=== PATIENT | female | born 1990 | race Hispanic/Latino ===

== ENCOUNTER 2018-04-24 13:00 | Inpatient (IN) | payer BC, OTHER ==
[~2018-04-24] VITALS: Ht 157.5 cm; Wt 89.7 kg
[2018-04-24 14:01] VITALS: BP 114/74
[2018-04-24 14:13] LABS: BASOPHILS % (AUTO) 0.5 % (0.0-5.0); EOSINOPHILS % (AUTO) 2.4 % (0.0-8.0); HEMATOCRIT 39.5 % (36-48); LYMPHOCYTES % (AUTO) 17.2 % (21.0-51.0); MEAN CORPUSCULAR HEMOGLOBIN 26.6 pg (27.0-33.0); MEAN CORPUSCULAR HGB CONC 32.4 g/dL (32.0-36.0); MONOCYTES % (AUTO) 5.8 % (3.0-13.0); NEUTROPHILS % (AUTO) 74.1 % (40.0-77.0); PLATELET COUNT (AUTO) 290 K/uL (130-400); RED BLOOD CELL COUNT(AUTO) 4.82 MIL/uL (4.00-5.50); RED CELL DISTRIBUTION WIDTH 13.5 % (11.0-15.5); WHITE BLOOD COUNT (AUTO) 10.3 K/uL (4.8-10.8)
[2018-04-25] MEDS: CEFAZOLIN SODIUM 1 GM VIAL IVP SCH (11:30)
[2018-04-26] VITALS (28 sets, daily range): BP systolic 92–125; BP diastolic 51–72
[2018-04-26] MEDS ORDERED: LACTATED RINGERS 1000ML 1,000 ML IV ONE (07:27)
[2018-04-26] MEDS ORDERED: CEFAZOLIN SODIUM 1 GM VIAL ONE (07:30)
[2018-04-26] MEDS: CEFAZOLIN SODIUM 1 GM VIAL IVP SCH (08:52)
[2018-04-26] MEDS ORDERED: MEPERIDINE-PF 25 MG/ML SYG ONE ×2 (10:27→10:40)
[2018-04-26] MEDS ORDERED: PROMETHAZINE HCL 25 MG/ML 1ML AMPULE IM PRN (10:45)
[2018-04-26] MEDS ORDERED: MEPERIDINE 10MG/ML 50ML PCA 50 ML IV PRN (10:45)
[2018-04-26] MEDS ORDERED: DIPHENHYDRAMINE HCL 25 MG CAPSULE PO PRN (10:45)
[2018-04-26] MEDS ORDERED: BISACODYL 10 MG SUPP.RECT RC PRN (10:45)
[2018-04-26] MEDS ORDERED: ONDANSETRON HCL 4 MG/2 ML VIAL IVP PRN (10:45)
[2018-04-26] MEDS ORDERED: CEFAZOLIN 3GM /D5W 100ML 100 ML IV SCH (10:45)
[2018-04-26] MEDS ORDERED: NALOXONE HCL 0.4 MG/1 ML ML IVP PRN (10:45)
[2018-04-26] MEDS ORDERED: FENTANYL CITRATE PF 50 MCG/1 ML 2ML VIAL ONE (10:51)
[2018-04-26] MEDS: CALDOLOR 800MG+NS 250ML 250 ML IVPB SCH ×2 (11:21→19:12)
[2018-04-26] MEDS: DEXTROSE 5 %-0.45 % NACL 1,000 ML IV PRN (19:13)
[2018-04-26] MEDS: CEFAZOLIN 3GM /D5W 100ML 100 ML IV SCH (19:45)
[2018-04-27] VITALS (7 sets, daily range): BP systolic 95–112; BP diastolic 51–68
[2018-04-27] MEDS: CALDOLOR 800MG+NS 250ML 250 ML IVPB SCH (02:28)
[2018-04-27] MEDS: CEFAZOLIN 3GM /D5W 100ML 100 ML IV SCH (03:32)
[2018-04-27 06:27] LABS: HEMATOCRIT 29.7 % (36-48); MEAN CORPUSCULAR HGB CONC 33.8 g/dL (32.0-36.0); MEAN CORPUSCULAR VOLUME 82.6 fL (79-99); PLATELET COUNT (AUTO) 238 K/uL (130-400); RED BLOOD CELL COUNT(AUTO) 3.59 MIL/uL (4.00-5.50); RED CELL DISTRIBUTION WIDTH 13.4 % (11.0-15.5); WHITE BLOOD COUNT (AUTO) 7.6 K/uL (4.8-10.8)
[2018-04-27] MEDS: DOCUSATE SODIUM 100 MG CAP PO PRN ×2 (08:45→21:10)
[2018-04-27] MEDS: SIMETHICONE 80 MG TAB.CHEW PO PRN ×4 (08:45→21:10)
[2018-04-27] MEDS: DEXTROSE 5 %-0.45 % NACL 1,000 ML IV PRN (08:45)
[2018-04-27] MEDS: ACETAMINOPHEN-CODEINE 300/30MG TAB PO PRN ×2 (10:16→20:04)
[2018-04-27] MEDS: IBUPROFEN 800 MG TAB PO SCH ×2 (11:36→18:58)
[2018-04-28] MEDS: IBUPROFEN 800 MG TAB PO SCH ×2 (02:51→11:05)
[2018-04-28 04:10] VITALS: BP 90/53
[2018-04-28 07:58] VITALS: BP 112/59
[2018-04-28] MEDS: DOCUSATE SODIUM 100 MG CAP PO PRN (09:06)
[2018-04-28] MEDS: SIMETHICONE 80 MG TAB.CHEW PO PRN (09:06)
[2018-04-28 11:30] VITALS: BP 118/65
== END 2018-04-28 13:25 | disposition home or self-care (01) | DRG 358 ==
LOC: EDSTATUS 13:00 → DAHIP 04-26 06:55 → WSH 04-26 12:00 → EDSTATUS 04-26 13:00
PROC: 0UN04ZZ Release Right Ovary, Percutaneous Endoscopic Approach (ICD-10-PCS; 2018-04-26)
PROC: 0UB20ZZ Excision of Bilateral Ovaries, Open Approach (ICD-10-PCS; principal; 2018-04-26 08:15)
PROC: 0WJJ0ZZ Inspection of Pelvic Cavity, Open Approach (ICD-10-PCS; 2018-04-26 08:15)
PROC: 3E0234Z Introduction of Serum, Toxoid and Vaccine into Muscle, Percutaneous Approach (ICD-10-PCS; 2018-04-26 08:15)
DX: R19.00 Intra-abdominal and pelvic swelling, mass and lump, unspecified site (principal); N80.9 Endometriosis, unspecified; N70.11 Chronic salpingitis; N73.6 Female pelvic peritoneal adhesions (postinfective); Z23 Encounter for immunization
CPT/HCPCS: 36415; 84702; 85025; 85027; 86850; 86900; 86901; 88305; A4218; A4344; J0330; J0690; J1100; J1741; J2001; J2175; J2250; J2405; J2704; J2710; J3010; J3490; J7120; Q2038

== ENCOUNTER 2018-04-30 00:47 | Emergency (ER) | payer BC ==
[2018-04-30 01:05] LABS: APPEARANCE,URINE Cloudy (CLEAR); BILIRUBIN,URINE Negative (NEGATIVE); COLOR,URINE Yellow (YELLOW); GLUCOSE, URINE (UA) Negative (NEGATIVE); KETONES,URINE Negative (NEGATIVE); LEUKOCYTE ESTERASE ,URINE Trace (NEGATIVE); NITRATE,URINE Negative (NEGATIVE); OCCULT BLOOD,URINE Moderate (NEGATIVE); PROTEIN,URINE Negative (NEGATIVE); UROBILINOGEN,URINE 0.2 mg/dL (0.2-1.0)
[2018-04-30 01:10] LABS: BACTERIA,URINE Few /HPF (None Seen); MUCUS,URINE Moderate LPF (None Seen); SQUAMOUS EPITHELIAL CELL,UR Few /HPF (0-2); WBC,URINE None Seen /HPF (0-1)
[2018-04-30 01:11] LABS: HCG,QUAL RESULT NEGATIVE (NEGATIVE)
[2018-04-30 02:02] LABS: BASOPHILS % (AUTO) 0.8 % (0.0-5.0); EOSINOPHILS % (AUTO) 4.5 % (0.0-8.0); HEMATOCRIT 32.2 % (36-48); LYMPHOCYTES % (AUTO) 20.7 % (21.0-51.0); MEAN CORPUSCULAR HEMOGLOBIN 26.9 pg (27.0-33.0); MEAN CORPUSCULAR HGB CONC 32.8 g/dL (32.0-36.0); MONOCYTES % (AUTO) 5.8 % (3.0-13.0); NEUTROPHILS % (AUTO) 68.2 % (40.0-77.0); PLATELET COUNT (AUTO) 308 K/uL (130-400); RED BLOOD CELL COUNT(AUTO) 3.93 MIL/uL (4.00-5.50); RED CELL DISTRIBUTION WIDTH 13.4 % (11.0-15.5); WHITE BLOOD COUNT (AUTO) 9.2 K/uL (4.8-10.8)
[2018-04-30 02:10] LABS: CREATININE 0.6 mg/dL (0.5-1.5); POTASSIUM 3.9 mmol/L (3.5-5.1)
[2018-04-30 02:14] LABS: ALBUMIN 3.1 g/dL (3.5-5.0); BILIRUBIN,TOTAL 0.2 mg/dL (0.2-1.0); TOTAL PROTEIN, SERUM 6.8 g/dL (6.0-8.3)
[2018-04-30] MEDS ORDERED: IOHEXOL-350 75 ML VIAL IV ONE (02:45)
== END 2018-04-30 04:57 | disposition home or self-care (01) ==
LOC: EDH 00:47
DX: R06.00 Dyspnea, unspecified (principal); J04.10 Acute tracheitis without obstruction; Z98.890 Other specified postprocedural states; Z88.1 Allergy status to other antibiotic agents
CPT/HCPCS: 36415; 71046; 71275; 80053; 81001; 81025; 85025; 85378; 87804 ×2; 93005; 93970; 99285; Q9967